=== PATIENT | male | born 1990 | race Caucasian/White ===

== ENCOUNTER 2016-07-11 14:47 | Emergency (ER) | payer OTHER ==
[2016-07-11] MEDS ORDERED: HYDROCODONE/ACETAMINOPHEN 5/325MG TABLET ONE (15:29)
[2016-07-11] MEDS ORDERED: CEPHALEXIN 500 MG CAPSULE ONE (16:18)
[2016-07-11] MEDS ORDERED: SULFAMETHOXAZOLE 800 MG/TRIMETHOPRIM 160 MG TABLET ONE (16:19)
== END 2016-07-11 16:42 | disposition home or self-care (01) ==
LOC: ED 14:47
DX: L03.116 Cellulitis of left lower limb (principal); M70.52 Other bursitis of knee, left knee
CPT/HCPCS: 99283 ×2; 10061 ×2; A9270 ×3